=== PATIENT | female | born 1960 | race Caucasian/White ===

== ENCOUNTER → 2021-12-23 17:14 | Outpatient (CLI) | payer BC, SELFPAY ==
--- NOTE | ~2021-12-23 | XR_ITS ---
EXAMINATION: XR cervical spine min 6V DATE: 12/23/2021 18:18 INDICATION: Neck pain. TECHNIQUE: 8 views of cervical spine including flexion and extension views were obtained. COMPARISON: None. FINDINGS: There is 4 degrees levocurvature of cervical spine. There is no abnormal motion with flexio n or extension. Vertebral body heights are normal. Intervertebral disc heights are normal. There is m ild right facet joint osteoarthritis at C4-C5. No neural foraminal stenosis or central canal stenosis . No prevertebral soft tissue swelling. IMPRESSION: 1. Mild right facet joint osteoarthritis at C4-C5. Reviewed, dictated and finalized at location A.
== END ==
PROVIDERS: PCP Internal Medicine
DX: M54.2 Cervicalgia (principal); M85.88 Other specified disorders of bone density and structure, other site
CPT/HCPCS: 72052

== ENCOUNTER 2023-10-17 23:56 | Observation (INO) | payer MEDICARE, SELFPAY ==
--- NOTE | ~2023-10-17 | CT_ITS ---
Non-contrast CT scan of the Abdomen and Pelvis Clinical indication: Left flank pain Technique: 2.5 mm axial scans were obtained through the abdomen and pelvis without intravenous or or al contrast. Dose reduction technique was used on this scan by utilizing automated exposure control a nd iterative reconstruction technique. The dose-length product (DLP) was 383.64 mGy-cm. Findings: Images through the lung bases reveal no abnormalities. There is a 7 mm distal left ureteral stone, with minimal left hydroureteronephrosis. Additional punct ate nonobstructing left renal stone present. No right renal or right ureteral stone. No right hydrone phrosis. Bilateral renal cysts are present. The liver, spleen, pancreas, and adrenals appear normal. Cholecystectomy clips are present. There is no aortic aneurysm. There is no evidence of bowel obstruction. Evidence of prior bariatric surgery. Images through the pelvis were performed. There is no evidence of ascites or lymphadenopathy. Urinary bladder unremarkable. No pelvic mass seen. No ascites. Impression: 7 mm distal left ureteral stone, with minimal left hydroureteronephrosis. Additional punctate nonobstructing left renal stone. Reviewed, dictated and finalized at location M. Impression: 7 mm distal left ureteral stone, with minimal left hydroureteronephrosis. Additional punctate nonobstructing left renal stone.
--- NOTE | ~2023-10-17 | XR_ITS ---
XR retrograde pyelo w/stent LT DATE: 10/18/2023 09:47 INDICATION: Left flank pain. 7 mm distal left ureteral calculus TECHNIQUE: 11.8 seconds fluoroscopy time [id number] [id number] COMPARISON: 10/18/2023 CT abdomen pelvis FINDINGS: Possible calcified calculus overlying the distal left ureter on foot caster image. The left ureter was catheterized via ureteroscopy. There is suggestion of 2 filling defects of the di stal left ureter. There is mild left hydroureteronephrosis. Subsequent, a guidewire was placed and then internal urinary stent, with proximal pigtail overlying t he left renal pelvis near the ureteropelvic junction, the distal pigtail overlying the left lateral a spect of the urinary bladder. Questionable calcified calculus overlying the left ureter at the S3 level. IMPRESSION: Probable 2 distal left ureteral calculi Left internal urinary stent placement. Cannot exclude calcified calculus overlying left ureter at S3 level after stent placement (circled on radiograph); consider noncontrast CT abdomen pelvis for confi rmation or exclusion of residual calculi as clinically appropriate Reviewed, dictated and finalized at Location A. Reviewed, dictated and finalized at location J. IMPRESSION: Probable 2 distal left ureteral calculi Left internal urinary stent placement. Cannot exclude calcified calculus overly ing left ureter at S3 level after stent placement (circled on radiograph); cons ider noncontrast CT abdomen pelvis for confirmation or exclusion of residual ca lculi as clinically appropriate
[2023-10-18] VITALS (13 sets, daily range): BP systolic 96–123; BP diastolic 45–56; PULSE 60–74; RESP 12–18; TEMP 36.2–37.1; O2SAT 97–100; BMI 25.7
[2023-10-18 00:14] LABS: Basophils Percent Auto 0.4 % (0.2-1.2); Eosinophils Absolute Auto 0.1 K/mm3 (0-0.3); Eosinophils Percent Auto 1.9 % (0-4.4); Hematocrit 38.2 % (37.0-47.0); Hemoglobin 12.6 g/dL (12.0-15.0); Immature Granulocyte Absolute 0.01 K/mm3 (0.00-0.031); Immature Granulocyte Percent A 0.1 % (0-0.5); Lymphocytes Absolute Auto 1.96 K/mm3 (0.9-3.2); Lymphocytes Percent Auto 28.2 % (18.3-44.2); Mean Corpuscular Hemoglobin 31.3 pg (26-34); Mean Platelet Volume 9.8 fl (7.4-10.4); Monocytes Absolute Auto 0.6 K/mm3 (0.1-0.6); Neutrophils Absolute Auto 4.3 K/mm3 (1.3-6.7); Neutrophils Percent Auto 61.4 % (45.5-73.1); Platelet Count Result 251 k/mm3 (150-375); Red Blood Count 4.02 M/mm3 (4.2-5.4); Red Cell Distribution Width 12.7 % (11.5-14.5)
[2023-10-18 00:23] LABS: Alanine Aminotransferase 113 U/L (6-35); Albumin Level 4.6 g/dL (3.5-5.1); Alkaline Phosphatase 101 U/L (38-126); Anion Gap 13 mmol/L (4-12); Aspartate Amino Transferase 54 U/L (14-36); Bilirubin,Total 0.4 mg/dL (0.2-1.3); Blood Urea Nitrogen 26 mg/dL (7-17); Calcium 9.7 mg/dL (8.4-10.2); Carbon Dioxide 20 mmol/L (22-30); Chloride 108 mmol/L (98-107); Estimated CRCL calculation 36 ml/min; Estimated Glomerular Filt Rate 41; Glucose 99 mg/dL (65-110); Lipase 134 U/L (23-300); Potassium 4.1 mmol/L (3.4-5.0); Sodium 141 mmol/L (137-145)
[2023-10-18] MEDS: SODIUM CHLORIDE 0.9% IV 1,000 ML 999 ML IV CONT (00:45)
--- NOTE | 2023-10-18 01:16 | ED.GENADULT ---
HPI - General Adult General Chief complaint: Back Pain/Injury Stated complaint: L flank pain, dark urine, n/v Time Seen by Provider: 10/18/23 00:13 History of Present Illness HPI narrative: Patient 63-year-old female who presents emergency department with chief complaint of left flank pain. Patient reports that around 6:00 p.m. this evening she started having pain in the left flank area the patient reports that she has prior history of kidney infections and also has had kidney stones before in the past patient reports started having nausea vomiting and reports she was afraid she is unable to keep fluids down. Related Data Allergies Allergy/AdvReac Type Severity Reaction Status Date / Time acetaminophen Allergy Severe ANXIETY Verified 02/19/09 14:35 oxycodone Allergy Severe ANXIETY Verified 02/19/09 14:35 Penicillins Allergy Severe RASH Verified 02/19/09 14:35 Sulfa (Sulfonamide Allergy Severe RASH Verified 02/19/09 14:35 Antibiotics) Review of Systems Review of Systems: A 10 system review of systems was completed on the patient and is negative except for what is stated in the HPI. Nursing and ancillary documentation was reviewed. Exam Narrative: GENERAL: Well-appearing, well-nourished, and in no acute distress. HEAD: Normocephalic, atraumatic. EYES: PERRLA and EOMI. ENT: Nares clear, no rhinorrhea or epistaxis. Mucous membranes moist. NECK: Supple. CHEST: Clear to auscultation. No respiratory distress. HEART: Regular rate and rhythm. No murmur heard. Normal peripheral pulses. ABDOMEN: Soft, nontender, nondistended, normal active bowel sounds. Mild left CVA tenderness EXTREMITIES: Normal range of motion. No edema. SKIN: Warm, dry, no rash. NEURO: No focal deficits. Alert and oriented x3. PSYCH: Normal mood and affect. Course Vital Signs Vital signs: Vital Signs Temperature 37.1 C 10/18/23 00:03 Pulse Rate 74 10/18/23 00:03 Respiratory Rate 16 10/18/23 00:03 Blood Pressure 123/47 L 10/18/23 00:03 Pulse Oximetry 97 10/18/23 00:03 Oxygen Delivery Room Air 10/18/23 00:03 Temperature 37.1 C 10/18/23 00:03 Pulse Rate 67 10/18/23 03:13 Respiratory Rate 18 10/18/23 03:13 Blood Pressure 101/52 L 10/18/23 03:13 Pulse Oximetry 100 10/18/23 03:13 Oxygen Delivery Room Air 10/18/23 00:03 Medical Decision Making [facility] Narrative Medical decision making narrative: Differential diagnosis includes UTI, pyelonephritis, ureterolithiasis, intra-abdominal infection, lumbar strain CT scan the abdomen pelvis showed a 6 mm stone distal left ureter Laboratory studies were obtained on the patient showed a white count of 7.0 hemoglobin was 12.6 electrolytes showed a BUN of 26 and creatinine 1.3 Urinalysis showed evidence of urinary tract infection Patient's pain is doing much better this given urinary tract infection case was discussed with Urology patient will be admitted for observation most likely will require stent placement today Vital Signs Vital Signs: Vital Signs Temperature 37.1 C 10/18/23 00:03 Pulse Rate 74 10/18/23 00:03 Respiratory Rate 16 10/18/23 00:03 Blood Pressure 123/47 L 10/18/23 00:03 Pulse Oximetry 97 10/18/23 00:03 Oxygen Delivery Room Air 10/18/23 00:03 Temperature 37.1 C 10/18/23 00:03 Pulse Rate 67 10/18/23 03:13 Respiratory Rate 18 10/18/23 03:13 Blood Pressure 101/52 L 10/18/23 03:13 Pulse Oximetry 100 10/18/23 03:13 Oxygen Delivery Room Air 10/18/23 00:03 Lab Data 10/18/23 00:09 10/18/23 00:09 Labs: Lab Results 10/18/23 10/18/23 Range/Units 00:09 02:26 WBC 7.0 (4.5-10.0) K/mm3 RBC 4.02 L (4.2-5.4) M/mm3 Hgb 12.6 (12.0-15.0) g/dL Hct 38.2 (37.0-47.0) % MCV 95.0 (80-100) fl MCH 31.3 (26-34) pg MCHC 33.0 (32-36) g/dl RDW 12.7 (11.5-14.5) % Plt Count 251 (150-375) k/mm3 MPV 9.8 (7.4-10.4) fl Immature Gran % (Aut
[2023-10-18 03:36] LABS: Add Urine Microscopic? YES; Appearance Urine Cloudy (Clear); Bacteria Urine None Seen /hpf; Bilirubin Urine 1+ (Negative); Blood Urine 3+ (Negative); Color Urine Dark Yellow (Yellow); Glucose Urine UA Negative (Negative); Ketones Urine 1+ mg/dL (Negative); Leukocyte Esterase Ur 1+ LEU/UL (Negative); Need Manual Microscopic Reviewed; Nitrate Urine Negative (Negative); Non Pathogenic Casts >20; Protein Urine 2+ mg/dL (Negative); RBC Urine >100 /hpf (0-2); Specific Grav Ur 1.019 (1.001-1.035); Squamous Epithelial Cell Urine None Seen /hpf (Few); WBC Urine 21-50 /hpf (0-3); pH Urine 5.5 (5.0-9.0)
[2023-10-18] MEDS: TAMSULOSIN HCL 0.4 MG CAPSULE PO (04:03)
[2023-10-18] MEDS: SODIUM CHLORIDE 0.9% IV 1,000 ML 125 ML IV CONT (05:50)
--- NOTE | 2023-10-18 06:47 | ADMGEN ---
This patient, Jordana Rebolledo, was admitted to Medical Room 252-01. Patient/family oriented to hospital policies and general routines including ID bracelet, bed and alarms, visiting hours, pain management, procedures, bathroom and other care routines, personal items, smoking policy, room service/diet, and visiting hours. Information on how to activate the Rapid Response Team has been discussed. Patient/Family are encouraged to report perceived risks to care and to ask questions if they do not understand what they are told or what they should do.
[2023-10-18] MEDS: PANTOPRAZOLE SODIUM IV 40 MG VIAL IV PUSH (08:20)
--- NOTE | 2023-10-18 08:34 | WPDURCON ---
Assessment and Plan Assessment and plan (1) Ureterolithiasis: Code(s): N20.1 - Calculus of ureter Status: Acute Plan I met with the patient and discussed options at the bedside. We discussed medical expulsive therapy and I quoted her a 30% chance of passing a stone this sized without further intervention over the next 6 weeks. She elects to proceed with intervention. While there is 1+ LE and 21-50 WBC/hpf, no bacteria noted on UA, no fevers or SIRS symptoms and WBC 7.0. Thus she elects to proceed with Ureteroscopy and laserlithotripsy with stent placement. She understands risks of infection/sepsis, inability to reach stone, need for further surgery, postoperative pain and stent discomfort and absolute need for stent removal in a timely fashion, anesthetic complication and injury to the urethra/bladder/ureter/kidney. She understands that if there are signs of infection such as pus draining or noted within the bladder that I will abort ureteroscopy and place stent pending resolution of infection. Urology Consult Note HPI Date Seen: 10/18/23 Requesting Physician: Lesa Shanks APRN Primary Care Provider: UNKNOWN,DOCTOR Consult Narrative Narrative: Jordana Rebolledo is a 63 year old female who reports pain that started yesterday in left flank associated with nausea and vomiting. Reports history of ESWL about 8 years ago. in ER found to have a left distal ureteral stone measuring 7 mm. UA with 1+LE, no bacteria noted on UA. She would like to proceed with definitive stone management. Review of Systems Constitutional: Constitutional: Reports as per HPI Eyes: Eyes: Reports no additional eye complaints ENT: Reports system reviewed and no additional complaints, except as documented Respiratory: Respiratory: Reports no additional respiratory complaints Gastrointestinal: Gastrointestinal: Reports no additional gastrointestinal complaints Genitourinary: Genitourinary: Denies hematuria, Denies urinary frequency and Reports flank pain Musculoskeletal: Musculoskeletal: Reports no additional musculoskeletal complaints Neurologic: Reports as per HPI Psychiatric: Psychiatric: Reports as per HPI [facility] Social History Social History Smoking status: Never smoker Alcohol intake: current Drinks per week: 1 Substance use: never Do You Feel Safe in your Home?: Yes Lack of Transportation: No Lack of Food: Never True Current Housing: I Have Housing Concerned About Future Housing: No Difficulty Paying Gas/Electric Bills: No Difficulty Paying for Meds: No Currently Unemployed: No Education: High School Diploma/GED Difficulty w/ Childcare or Family Care: No Spiritual care concerns: Yes Meds Home Medications and Allergies Home Medications Medication Instructions Recorded Confirmed Type anastrozole 1 mg tablet 1 mg PO DAILY 10/18/23 10/18/23 History ascorbate calcium (vitamin C) 500 500 mg PO DAILY 10/18/23 10/18/23 History mg capsule aspirin 81 mg capsule 81 mg PO DAILY 10/18/23 10/18/23 History biotin 10,000 mcg capsule 5,000 mcg PO DAILY 10/18/23 10/18/23 History bupropion HCl 300 mg 24 hr tablet, 300 mg PO DAILY 10/18/23 10/18/23 History extended release cetirizine 10 mg tablet (Zyrtec) 10 mg PO DAILY 10/18/23 10/18/23 History cyanocobalamin (vitamin B-12) 5,000 mcg PO DAILY 10/18/23 10/18/23 History 1,000 mcg tablet (Vitamin B-12) [id number] 45 mg-folic 1 cap PO DAILY 10/18/23 10/18/23 History acid 800 mcg-vit K 120 mcg capsule (Bariatric Multivitamins) tirzepatide 12.5 mg/0.5 mL 12.5 mg subcut WEEKLY 10/18/23 10/18/23 History subcutaneous pen injector (Mounjaro) Allergies Allergy/AdvReac Type Severity Reaction Status Date / Time acetaminophen Allergy Severe ANXIETY Verified 02/19/09 14:35 Penicillins Allergy Severe RASH Verified 02/19/09 14:35 Sulfa (Sulfonamide Allerg
--- NOTE | 2023-10-18 09:11 | WPDANESEPPF ---
Anes - Initial Pre Proc Eval Procedure: Operation Date: 10/18/23 09:30 Proposed Procedures p Cystoscopy, Possible Left Retrograde Pylogram, Possible Stone Extraction, Possbile Stent Placement, Possible Laser Lithotripsy(Left) - Karthikeyan Piper MD Date/Time: 10/18/23 09:11 Surgeon: Lesa hSanks APRN Pre Op Diagnosis: uti,ureterolithiasis Patient Data Age: 63 Gender: F Height: 1.7 m Weight: 74.7 kg Last Vital Signs Temp 36.6 C 10/18/23 06:40 Pulse 60 10/18/23 06:40 Resp 16 10/18/23 06:40 BP 112/48 L 10/18/23 06:40 Pulse Ox 100 10/18/23 06:40 O2 Del Method Room Air 10/18/23 00:03 Allergies Allergy/AdvReac Type Severity Reaction Status Date / Time acetaminophen Allergy Severe ANXIETY Verified 02/19/09 14:35 Penicillins Allergy Severe RASH Verified 02/19/09 14:35 Sulfa (Sulfonamide Allergy Severe RASH Verified 02/19/09 14:35 Antibiotics) oxycodone [From Percocet] AdvReac Anxiety Verified 10/18/23 05:51 Home Medications Medication Instructions Recorded Confirmed Type anastrozole 1 mg tablet 1 mg PO DAILY 10/18/23 10/18/23 History ascorbate calcium (vitamin C) 500 500 mg PO DAILY 10/18/23 10/18/23 History mg capsule aspirin 81 mg capsule 81 mg PO DAILY 10/18/23 10/18/23 History biotin 10,000 mcg capsule 5,000 mcg PO DAILY 10/18/23 10/18/23 History bupropion HCl 300 mg 24 hr tablet, 300 mg PO DAILY 10/18/23 10/18/23 History extended release cetirizine 10 mg tablet (Zyrtec) 10 mg PO DAILY 10/18/23 10/18/23 History cyanocobalamin (vitamin B-12) 5,000 mcg PO DAILY 10/18/23 10/18/23 History 1,000 mcg tablet (Vitamin B-12) [id number] 45 mg-folic 1 cap PO DAILY 10/18/23 10/18/23 History acid 800 mcg-vit K 120 mcg capsule (Bariatric Multivitamins) tirzepatide 12.5 mg/0.5 mL 12.5 mg subcut WEEKLY 10/18/23 10/18/23 History subcutaneous pen injector (Shannan) Laboratory Tests 10/18/23 10/18/23 00:09 02:26 WBC 7.0 K/mm3 (4.5-10.0) RBC 4.02 L M/mm3 (4.2-5.4) Hgb 12.6 g/dL (12.0-15.0) Hct 38.2 % (37.0-47.0) MCV 95.0 fl (80-100) MCH 31.3 pg (26-34) MCHC 33.0 g/dl (32-36) RDW 12.7 % (11.5-14.5) Plt Count 251 k/mm3 (150-375) MPV 9.8 fl (7.4-10.4) Immature Gran % (Auto) 0.1 % (0-0.5) Neut % (Auto) 61.4 % (45.5-73.1) Lymph % (Auto) 28.2 % (18.3-44.2) [place] % (Auto) 8.0 % (2.6-8.5) Eos % (Auto) 1.9 % (0-4.4) Baso % (Auto) 0.4 % (0.2-1.2) Lymph # (Auto) 1.96 K/mm3 (0.9-3.2) [place] # (Auto) 0.6 K/mm3 (0.1-0.6) Eos # (Auto) 0.1 K/mm3 (0-0.3) Baso # (Auto) 0.0 K/mm3 (0.0-0.1) Abs Immat Gran (auto) 0.01 K/mm3 (0.00-0.031) Absolute Neuts (auto) 4.3 K/mm3 (1.3-6.7) Absolute Nucleated RBC 0.000 K/mm3 (0.0-0.012) Nucleated RBC % 0.0 % (0.0-0.2) Sodium 141 mmol/L (137-145) Potassium 4.1 mmol/L (3.4-5.0) Chloride 108 H mmol/L (98-107) Carbon Dioxide 20 L mmol/L (22-30) Anion Gap 13 H mmol/L (4-12) BUN 26 H mg/dL (7-17) Creatinine 1.30 H mg/dL (0.7-1.0) Estim Creat Clear Calc 36 ml/min Estimated GFR 41 L (59 - ) Glucose 99 mg/dL (65-110) Calcium 9.7 mg/dL (8.4-10.2) Total Bilirubin 0.4 mg/dL (0.2-1.3) AST 54 H U/L (14-36) ALT 113 H U/L (6-35) Alkaline Phosphatase 101 U/L (38-126) Total Protein 8.0 g/dL (6.3-8.2) Albumin 4.6 g/dL (3.5-5.1) Lipase 134 U/L (23-300) Urine Color Dark yellow (Yellow) Urine Appearance Cloudy H (Clear) Urine pH 5.5 (5.0-9.0) Ur Specific [place] 1.019 (1.001-1.035) Urine Protein 2+ H mg/dL (Negative) Urine Glucose (UA) Negative mg/dL (Negative) Urine Ketones 1+ H mg/dL (Negative) Ur Blood (M
--- NOTE | 2023-10-18 09:11 | WPDHPUPDATE1 ---
History and Physical Update Update Date/Time: 10/18/23 09:11 History and Physical has been reviewed, including an updated exam of the patient. There are NO changes in the patient's condition. Risks, benefits, and alternatives have been discussed and questions answered. Patient agrees to proceed with procedure. To OR for left ureteroscopy and laser lithotripsy with stent placement. Discussed risks including sepsis, postoperative pain, stent discomfort, need for further surgery, anesthetic complication.
[2023-10-18] MEDS: LIDOCAINE HCL 2% GEL UROJET 10 ML PKG MUCOUS MEM (09:23)
--- NOTE | 2023-10-18 09:44 | W.PM.PROC2 ---
Procedure Note - Detailed Date of Procedure 10/18/23 Pre-op Diagnosis Left ureteral stone Post-op Diagnosis Same Procedure Performed 1. Left ureteroscopy with laser lithotripsy 2. Left ureteral stent placement 3. Left retrograde pyelogram 4. Fluoroscopy with interpretation of images, less than 1 hour Surgeon Karthikeyan Piper MD Anesthesia General Indications This is a pleasant 63 year old woman who presents to [facility] with a distal left ureteral stone. She elects to treat the stone today. We reviewed risks and benefits in detail and she would like to proceed. Findings No bladder masses, lesions or stones. No purulence or sign of infection. Description of Procedure After a discussion of risks and benefits, the patient offers informed written consent. She was taken to the operating and moved to the table in the supine position. Anesthesia was induced, she was intubated without incident. She was prepped and draped in the standard sterile fashion. A call to order was performed. The procedure began with the atraumatic placement of a 22F cystoscope. Pancystoscopy revealed the aforementioned findings. The left ureteral orifice was approached and a ureteral access catheter used to approach the orifice. A wire was advanced into the distal ureter and the catheter over the wire. A retrograde pyelogram was placed with mild hydronephrosis noted. An 8F/10F dilator was used to sequentially dilate the distal ureter and a second wire placed for safety. The ureteroscope was placed adjacent to the wire to the stone and the stone fragmented using fragmentation settings 0.8 and 10Hz (8W). The stone fragments were grasped and removed with a zero tip basket. The ureteroscope was then removed and a variable length 6F stent placed over the wire with an excellent curl noted in the renal pelvis. The bladder was irrigated and stone fragments removed. She was cleaned and dried of betadine prep and transferred to the supine position and awoken from anesthesia. Implants 6F Variable length stent. Estimated Blood Loss 2 Pathology Yes (stone for analysis.) Complications No immediate complications Condition Stable
[2023-10-18] MEDS: LACTATED RINGERS 1,000 ML 30 ML IV CONT (09:48)
--- NOTE | 2023-10-18 09:53 | WPDUROPN2 ---
Subjective Subjective Date/Time Seen: 10/18/23 09:53 Interval history: Ureteroscopy uneventful, stone removed, stent placed. Will plan for stent removal on Thursday of next week. If vitals stable, pain controlled, tolerating diet and no other concerns, she may discharge later today. Please DC with pain medication and 5 days of antibiotics to cover uropathogens. -Luis E Piper MD Objective Data Vital Signs Vital Signs: Vital Signs - 24 hr 10/18/23 00:03 10/18/23 00:07 10/18/23 02:26 Temperature 98.8 F Pulse Rate 74 64 70 Respiratory Rate 16 16 16 Blood Pressure 123/47 L 105/56 L 115/50 L Pulse Oximetry 97 100 100 Oxygen Delivery Room Air 10/18/23 03:13 10/18/23 05:21 10/18/23 06:07 Temperature Pulse Rate 67 68 68 Respiratory Rate 18 18 13 Blood Pressure 101/52 L 102/54 L 117/56 L Pulse Oximetry 100 97 100 Oxygen Delivery 10/18/23 06:40 Temperature 97.8 F Pulse Rate 60 Respiratory Rate 16 Blood Pressure 112/48 L Pulse Oximetry 100 Oxygen Delivery Intake/Output Intake/Output: Intake & Output 10/15/23 10/16/23 10/17/23 10/18/23 23:59 23:59 23:59 23:59 Intake Total 1050 Balance 1050 Meds/Results Medications: Active Medications Generic Name Dose Route Start Last Admin Trade Name Freq PRN Reason Stop Dose Admin Fentanyl Citrate 25 mcg 10/18/23 09:17 Fentanyl Citrate Inj (*Crx) 100 Mcg/2 Ml Vial IV PUSH Q2M PRN Pain Ceftriaxone Sodium 1 gm in 50 mls @ 100 mls/hr 10/19/23 05:00 Rocephin 1 Gm/Ns 50 Ml IVPB Q24H ARIE Sodium Chloride 1,000 mls @ 125 mls/hr 10/18/23 05:20 10/18/23 05:50 Normal Saline Iv IV CONT 125 mls/hr .Q8H ARIE Administration Lactated Ringer's 1,000 mls @ 30 mls/hr 10/18/23 09:20 Lr - Lactated Ringers Iv IV CONT .Q24H ARIE Morphine Sulfate 2 mg 10/18/23 06:50 Morphine Sulfate (*Crx) 4 Mg/Ml Inj IV PUSH Q2H PRN Pain Rated 7-10 Ondansetron HCl 4 mg 10/18/23 06:49 Ondansetron Inj 4 Mg/2 Ml Vial IV PUSH Q6H PRN Nausea And Vomiting Ondansetron HCl 4 mg 10/18/23 09:17 Ondansetron Inj 4 Mg/2 Ml Vial IV PUSH ONCE PRN Nausea Pantoprazole Sodium 40 mg 10/18/23 09:00 10/18/23 08:20 Pantoprazole Sodium Iv 40 Mg Vial IV PUSH 40 mg QAM ARIE Administration Radiology Results: ITS Impressions Abdomen/Pelvis CT 10/18/23 06:21 Impression: 7 mm distal left ureteral stone, with minimal left hydroureteronephrosis. Additional punctate nonobstructing left renal stone. Labs Labs: Laboratory Results - last 24 hr 10/18/23 10/18/23 00:09 02:26 WBC 7.0 RBC 4.02 L Hgb 12.6 Hct 38.2 MCV 95.0 MCH 31.3 MCHC 33.0 RDW 12.7 Plt Count 251 MPV 9.8 Immature Gran % (Auto) 0.1 Neut % (Auto) 61.4 Lymph % (Auto) 28.2 [place] % (Auto) 8.0 Eos % (Auto) 1.9 Baso % (Auto) 0.4 Lymph # (Auto) 1.96 [place] # (Auto) 0.6 Eos # (Auto) 0.1 Baso # (Auto) 0.0 Abs Immat Gran (auto) 0.01 Absolute Neuts (auto) 4.3 Absolute Nucleated RBC 0.000 Nucleated RBC % 0.0 Sodium 141 Potassium 4.1 Chloride 108 H Carbon Dioxide 20 L Anion Gap 13 H BUN 26 H Creatinine 1.30 H Estim Creat Clear Calc 36 Estimated GFR 41 L Glucose 99 Calcium 9.7 Total Bilirubin 0.4 AST 54 H ALT 113 H Alkaline Phosphatase 101 Total Protein 8.0 Albumin 4.6 Lipase 134 Urine Color Dark yellow Urine Appearance Cloudy H Urine pH 5.5 Ur Specific [place] 1.019 Urine Protein 2+ H Urine Glucose (UA) Negative Urine Ketones 1+ H Ur Blood (Man) 3+ H Urine Nitrate Negative Urine Bilirubin 1+ H Urine Urobilinogen 1.0 Add Ur Microanalysis Reviewed Leukocyte Esterase Rfl 1+ H Urine RBC >100 H Urine WBC 21-50 H Ur Squamous Epith Cells None seen Urine Bacteria None seen Urine Casts >20
--- NOTE | 2023-10-18 11:54 | PM.SD2 ---
Same Day Admit/Disch: HPI History of Present Illness Chief complaint: uti,ureterolithiasis Narrative: Patient is a 63-year-old female who presented to the emergency department with complaints left CVA pain, fever, chills, burning with urination and mild fever. Patient reports she has had a previous urinary tract infections with kidney stones in the past as had to have a trip see prior and states symptoms are the same. Patient states her only past medical history is diabetes which is well controlled with diet. In the emergency department patient was found to have a urinary tract infection with positive leukocyte, blood+, cloudy urine secondary to a 7mm distal left ureter stone with mild hydroureter nephrosis. Patient's vitals stable upon admission and other labs unremarkable normal WBC afebrile. Urology was consulted from the emergency department and patient was admitted to the medical unit for further evaluation and treatment ureterolithiasis. Patient denied any chest pain, shortness a breath, dizziness part positives for nausea chills and left CVA pain which had improved from the emergency department following pain medication IV fluids. Patient was then taken to the OR for ureteroscopy with stone removal and stent placement tolerated procedure well plan will be for removal of stent next Thursday in urology office. Urology cleared for discharge requesting pain medication and ABX for uropathogens. Patient had minimal discomfort following procedure is discharged home per urology is recommendations. [facility] Social History Social History Smoking status: Never smoker Alcohol intake: current Drinks per week: 1 Substance use: never Do You Feel Safe in your Home?: Yes Lack of Transportation: No Lack of Food: Never True Current Housing: I Have Housing Concerned About Future Housing: No Difficulty Paying Gas/Electric Bills: No Difficulty Paying for Meds: No Currently Unemployed: No Education: High School Diploma/GED Difficulty w/ Childcare or Family Care: No Spiritual care concerns: Yes Same Day Admit/Disch: Med Pre-admit Medications Home Medications Medication Instructions Recorded Confirmed Type anastrozole 1 mg tablet 1 mg PO DAILY 10/18/23 10/18/23 History ascorbate calcium (vitamin C) 500 500 mg PO DAILY 10/18/23 10/18/23 History mg capsule aspirin 81 mg capsule 81 mg PO DAILY 10/18/23 10/18/23 History biotin 10,000 mcg capsule 5,000 mcg PO DAILY 10/18/23 10/18/23 History bupropion HCl 300 mg 24 hr tablet, 300 mg PO DAILY 10/18/23 10/18/23 History extended release cefdinir 300 mg capsule 300 mg PO Q12H #14 caps 10/18/23 Rx cetirizine 10 mg tablet (Zyrtec) 10 mg PO DAILY 10/18/23 10/18/23 History cyanocobalamin (vitamin B-12) 5,000 mcg PO DAILY 10/18/23 10/18/23 History 1,000 mcg tablet (Vitamin B-12) [id number]-zlofrxhg-[id number] 45 mg-folic 1 cap PO DAILY 10/18/23 10/18/23 History acid 800 mcg-vit K 120 mcg capsule (Bariatric Multivitamins) tirzepatide 12.5 mg/0.5 mL 12.5 mg subcut WEEKLY 10/18/23 10/18/23 History subcutaneous pen injector (Mounjaro) tramadol 50 mg tablet 50 mg PO Q6H PRN pain #15 tabs 10/18/23 Rx Review of Systems Review of Systems All systems reviewed & are unremarkable except as noted in HPI and below Exam Narrative: Physical Exam: GENERAL: Alert and oriented x 3. No acute distress. EYES: EOMI. No scleral icterus. PERRLA. HEENT: Moist mucous membranes. LUNGS: Clear to auscultation bilaterally. No accessory muscle use. CARDIOVASCULAR: Regular rate and rhythm. No murmur. No JVD. S1-S2 ABDOMEN: Soft, non tenderness and non-distended. No palpable masses. : LT CVA tenderness EXTREMITIES: No edema. Non-tender SKIN: No rashes or lesions. Skin warm, dry. NEUROLOGIC: No focal neurological deficits. CN II-XII grossly intact PSYCHIATRIC: Appropriate mood and affect. Good judgement and
== END 2023-10-18 14:25 | disposition home or self-care (01) ==
LOC: ANHED 10-18 04:37 → ANH2MED 10-18 06:06
PROVIDERS: Urology; Admitting Provider Internal Medicine; Emergency Provider Emergency Medicine; Visit Provider Nurse Practitioner Family
PROC: (CPT 52352; principal; 2023-10-18 09:30)
DX: N20.1 Calculus of ureter (principal); Z79.811 Long term (current) use of aromatase inhibitors; Z79.85 Long-term (current) use of injectable non-insulin antidiabetic drugs; Z79.82 Long term (current) use of aspirin
CPT/HCPCS: 52356; 36415; 74176; 74420; 80053; 81001; 82365; 83690; 85025; 87086; 88300; 96361; 96365; 96375; 99285; A9270; C1758; C1769; C2617; G0378; J0696; J1100; J2405; J2470; J2704; J3010; J7030; J7120; Q9966

== ENCOUNTER 2023-10-26 10:12 | Outpatient (CLI) | payer MEDICARE, SELFPAY ==
--- NOTE | ~2023-10-26 | MR_ITS ---
EXAMINATION: MR brain/brain stem wo con DATE: 10/26/2023 10:50 INDICATION: Dizziness and giddiness. TECHNIQUE: Magnetic resonance imaging (MRI) of the brain and brainstem was performed without intraven ous contrast. COMPARISON: None. FINDINGS: There are scattered areas of nonspecific increased T2-weighted signal intensity in the cere bral white matter, which is within normal limits for the patient's age. There is no intracranial hem orrhage, acute infarction, or abnormal intracranial mass lesion. The ventricles are normal in size. C avum septum pellucidum and vergae are noted. There is mild mucosal thickening in the ethmoid sinuses. The orbits are normal. The mastoid air cells are normal. The internal auditory canals, inner ears, a nd tympanic cavities are normal. IMPRESSION: 1. Normal aging brain. Reviewed, dictated and finalized at location A. IMPRESSION: 1. Normal aging brain.
== END 2023-10-26 10:13 ==
LOC: MICIMG 10:13
DX: R42 Dizziness and giddiness (principal); R29.6 Repeated falls
CPT/HCPCS: 70551

== ENCOUNTER 2023-11-23 13:20 | Outpatient (CLI) | payer MEDICARE, SELFPAY ==
--- NOTE | ~2023-11-23 | XR_ITS ---
XR abdomen/kub 1V Ordering provider: Karthikeyan Piper MD History: . L ureteral stone . Comparison: None. FINDINGS: BOWEL: Nonobstructive bowel gas pattern. ORGANOMEGALY: Status post cholecystectomy. Postoperative changes in the area of the stomach. SIGNIFICANT PATHOLOGIC CALCIFICATIONS: Possibility of stone in the left transverse process of the L5. OTHER: No free air is seen under the diaphragm. Degenerative changes of the spine. IMPRESSION: NO ACUTE ABDOMINAL FINDINGS. Possible stone in the left mid ureter. Follow-up advised. Reviewed, dictated and finalized at location A.
== END 2023-11-23 13:21 | disposition home or self-care (01) ==
PROVIDERS: Visit Provider Urology
DX: N20.1 Calculus of ureter (principal)
CPT/HCPCS: 74018

== ENCOUNTER 2023-12-16 11:36 | Outpatient (CLI) | payer MEDICARE, SELFPAY ==
--- NOTE | ~2023-12-16 | CT_ITS ---
Non-contrast CT scan of the Abdomen and Pelvis Clinical indication: Left ureteral stone Technique: 2.5 mm axial scans were obtained through the abdomen and pelvis without intravenous or or al contrast. Dose reduction technique was used on this scan by utilizing automated exposure control a nd iterative reconstruction technique. The dose-length product (DLP) was 582.85 mGy-cm. COMPARISON: 10/18/2023 Findings: Images through the lung bases reveal no abnormalities. There is no evidence of renal or ureteral calculi. The kidneys and the ureters are nondilated. The liver, spleen, pancreas, and adrenals appear normal. Cholecystectomy clips are present. There is no aortic aneurysm. There is no evidence of bowel obstruction. Evidence of prior bariatric surgery. Images through the pelvis were performed. There is no evidence of ascites or lymphadenopathy. Tiny bu bble of air present in the urinary bladder. No pelvic mass seen. No ascites. Impression: No renal or ureteral stones seen. No bladder stone. No hydronephrosis. Tiny bubble of air in urinary bladder. Correlate for iatrogenic cause. Reviewed, dictated and finalized at location . Impression: No renal or ureteral stones seen. No bladder stone. No hydronephrosis. Tiny bubble of air in urinary bladder. Correlate for iatrogenic cause.
== END 2023-12-16 11:37 | disposition home or self-care (01) ==
LOC: MICIMG 11:37
PROVIDERS: Visit Provider Urology
DX: N20.1 Calculus of ureter (principal)
CPT/HCPCS: 74176